=== PATIENT | male | born 1995 ===

== ENCOUNTER 2020-05-04 14:27 | Inpatient (IN) | payer BC, MEDICARE, MEDICAID ==
[2020-05-04 17:08] VITALS: BMI 17.2
[2020-05-04] MEDS ORDERED: Ondansetron PF 4 MG/2 ML Vial IVP PRN (17:28)
[2020-05-04] MEDS ORDERED: Acetaminophen 325 MG TAB PO PRN (17:28)
[2020-05-04] MEDS ORDERED: Morphine 4 MG/ML VIAL SLOW IVP PRN (17:30)
[2020-05-04] MEDS ORDERED: Morphine 4 MG/ML VIAL ONE (17:34)
[2020-05-04] MEDS ORDERED: Albuterol Sulfate 1.25 MG/3 ML NEB NEB PRN (18:02)
[2020-05-04] MEDS ORDERED: HYDROcodone/Acetaminophen 7.5/325 mg Tablet PO PRN (18:19)
[2020-05-04 18:28] LABS: Anion Gap 12 mmol/L (10-20); BUN (Urea Nitrogen) 7 mg/dL (8.9-20.6); Calc. Creatinine Clearance 145 mL/min (70-130); Calcium 8.6 mg/dL (7.8-10.44); Carbon Dioxide 23 mmol/L (22-29); Chloride 107 mmol/L (98-107); Estimated GFR-MDRD Greater than 90; Glucose 89 mg/dL (70-105); Potassium 3.8 mmol/L (3.5-5.1); Sodium 138 mmol/L (136-145)
[2020-05-04] MEDS ORDERED: Clindamycin/D5W 600 MG in Premix Bag 1 BAG IVPB SCH (18:30)
[2020-05-04 18:34] LABS: Anisocytosis SLIGHT = 6-15 cells (100X) (0-5/hpf); Band 19 % (5-11); Eosinophils 2 % (0-10); Hemoglobin C Crystals SLIGHT (None Seen); Hypochromia MODERATE=16-30 cells (100X) (0-5/hpf); Lymphocytes 18 % (21-51); MDiff Complete? YES; Mean Corpuscular HGB CONC 34.1 g/dL (32.0-36.0); Mean Corpuscular Volume 73.2 fL (78.0-98.0); Mean Platelet Volume 11.3 fL (7.4-10.4); Metamyelocyte 4 % (0-0); Neutrophil 55 % (42-75); Nucleated RBC 1 % (0); Platelet Count 365 thou/uL (130-400); Poikilocytosis MODERATE=16-30 cells (100X) (0-5/hpf); RBC Distribution Width 21.8 % (11.5-14.5); Reactive Lymphocytes 2 % (0-10); Red Blood Cell (RBC) Count 2.38 mill/uL (4.70-6.10); Sickle Cells SLIGHT = 1-5 cells (100X) (None Seen); White Blood Cell (WBC) Count 14.3 thou/uL (4.8-10.8)
--- NOTE | 2020-05-04 19:10 | HP ---
CHIEF COMPLAINT: Dental infection. HISTORY OF PRESENT ILLNESS: This is a 24-year-old male with history of sickle cell disease, asthma, who presented to [facility] with a complaint of swelling in the right side of his face. He reports that it started 2 days ago, with pain, progressed to significant swelling yesterday that has progressively gotten worse. He denies any fevers or chills. He denies any precipitating or relieving factors. He reports the pain is a 9/10 in intensity right now, radiates to the right side of his neck. He reports a similar history on the left side associated with a dental infection, however, not as severe. The patient does have a history of sickle cell disease, reports multiple transfusions in the past, however none recently. He states that he has been doing well, it has been over a year since his last hospitalization, and he does not take any of his regular medications. As for the asthma, he denies any problems and rarely uses an inhaler. He has not seen his Primary Care Provider in years , or senior operations analyst. In [facility], patient underwent a CT scan which was significant for: cellulitis involving the right face, primarily over the mandible region, and a small fluid collection along the buccal surface of the mandible which may represent a small developing abscess, probably related to caries from the mandibular molars. He received clindamycin 600 mg IV. The patient was transferred to this facility for an oral maxillofacial surgeon. The patient also received normal saline 500 mL, Toradol 30 mg x2, Zofran 4 mg oral, Arabi 1 tablet. The patient also found to have a hemoglobin of 5.8, and he received 1 unit of packed red blood cells. PAST MEDICAL HISTORY: 1. Sickle cell disease - no medications and no regular monitoring. 2. Asthma. PAST SURGICAL HISTORY: A port on the left side of his chest. MEDICATIONS: The patient has a list of medications that he should be on, however, he reports not taking any of them. This list is; 1. Tylenol No. 3 one to two tablets every 4 hours as needed. 2. Albuterol 2 puffs every 4 hours as needed. 3. Aspirin 81 mg every other day. 4. Deferasirox 1500 mg daily. 5. Anne Marie 180 mg daily. 6. Folic acid 1 mg daily. 7. Gabapentin 300 mg daily. 8. Arabi 5/325 one to two tablets every 4 hours as needed. 9. Ibuprofen 800 mg three times daily as needed. 10. Xopenex 1.25 mg nebulizer every 4 hours as needed. 11. Singulair 10 mg daily. 12. Multivitamin daily. ALLERGIES: HE DENIES. FAMILY HISTORY: Negative in his immediate family. SOCIAL HISTORY: He denies alcohol. Reports cigarettes about 2 times per week and states his mom, Mo, is his surrogate decision maker. REVIEW OF SYSTEMS: Negative for fevers, nausea, vomiting, difficulty breathing, difficulty swallowing. He also denies any blood in his urine or stool or change in bowel or bladder habits. Positive for left leg pain that is chronic and worse over the past 4 days. All remaining review of systems are reviewed and negative. PHYSICAL EXAMINATION: VITAL SIGNS: Blood pressure 103/57, temperature 98.4, pulse 78, respirations 16 , and sats 97% on room air. GENERAL: Awake, alert, appears uncomfortable secondary to pain, grasping on the right side of his jaw. He is not in extreme distress. HEENT: His pupils are equal and round. Oral mucosa is pink and moist. He does have significant edema of the right cheek extending down into the right side of his neck with tenderness to palpation throughout. No overlying skin changes. NECK: Supple, nontender. LYMPHATICS: No palpable anterior cervical lymphadenopathy, however. Given the significant tenderness to palpation, the exam was limited. LUNGS: Clear to auscultation bilateral. No audible wheezing, rhonchi, or rales. HEART: Normal S1, S2. Regular rate and rhythm. No significant murmurs. ABDOMEN: Soft, present bowel sounds. Nontender, nondistended. EXTREMITIES: No edema of the joints. No tenderness to palpation. No erythema of the joints. SKIN: No visible rashes. NEUROLOGIC: No focal deficits. PSYCHIATRIC: Appears euthymic. VASCULAR: 2+ dorsalis pedis pulses. LABORATORY DATA: Reviewed from [place]. Renal panel; 139, 3.9, 104, 24, 70.6, 97. Type and screen O positive, antibody negative. CT scan of the face with contrast, cellulitis involving the right face, primarily over the mandible region. Small fluid dense collection along the buccal surface of the mandible, may represent a small developing abscess, probably related to caries from the mandibular molars. CBC; 14.9, 5.8, 16.9 with platelets of 392. Reticulocyte count 5.2, LDH 339. IMPRESSION: 1. Right facial cellulitis with concern of abscess in the mandibular area. 2. Sickle cell disease with early symptoms of crisis with acute on chronic left leg pain. 3. Chronic anemia now status post 1 unit of packed red blood cells at [facility]. 3. Asthma, controlled. PLAN: 1. Consultation with OMFS on-call. I spoke with Dr. Kelly who will plan to see the patient tomorrow. We reviewed orders for tonight, which are to continue the clindamycin IV, n.p.o. starting at 8 in the morning, manage pain and callback with any changes. The patient last received the clindamycin about 8 hours ago. We will schedule the next dose now. 2. Manage pain with morphine, avoiding any Toradol for now as I am concerned that it may increase his risk of bleeding in the OR tomorrow and patient is already anemic. Add option for norco as well. 3. We will obtain a type and screen, repeat the hemoglobin with a goal of transfusion to a level of at least above 7. We will check that again in the morning. 4. As needed albuterol with any breathing difficulty. 5. Monitoring for any airway compromise associated with the facial/mandibular edema. There is none currently. 6. We will order a liquid diet for now. 7. DVT prophylaxis with SCDs. 8. GI prophylaxis is not indicated. 9. Code status is full. Surrogate decision maker is the patient's mom. 10. Reviewed the plan of care with the patient. No questions or further needs at the end of evaluation. 11. The patient is at high risk given age, comorbidities, and current presentation. Job ID: [id number] [facility]
[2020-05-04] MEDS: HYDROcodone/Acetaminophen 7.5/325 mg Tablet PO PRN ×2 (19:21→23:14)
[2020-05-04] MEDS: Sodium Chloride 0.9% 1,000 ML IV SCH (19:21)
[2020-05-04] MEDS: Morphine 4 MG/ML VIAL SLOW IVP PRN (21:56)
[2020-05-05] MEDS: Clindamycin/D5W 600 MG in Premix Bag 1 BAG IVPB SCH ×3 (01:44→17:33)
[2020-05-05] MEDS: Morphine 4 MG/ML VIAL SLOW IVP PRN ×6 (02:21→22:03)
[2020-05-05] MEDS: HYDROcodone/Acetaminophen 7.5/325 mg Tablet PO PRN ×5 (03:41→23:27)
[2020-05-05 05:53] LABS: Anion Gap 10 mmol/L (10-20); BUN (Urea Nitrogen) 5 mg/dL (8.9-20.6); Calc. Creatinine Clearance 164 mL/min (70-130); Calcium 8.9 mg/dL (7.8-10.44); Carbon Dioxide 26 mmol/L (22-29); Chloride 106 mmol/L (98-107); Estimated GFR-MDRD Greater than 90; Glucose 89 mg/dL (70-105); Potassium 3.5 mmol/L (3.5-5.1); Sodium 138 mmol/L (136-145)
[2020-05-05 06:21] LABS: Hemoglobin 6.7 g/dL (14.0-18.0); Mean Corpuscular HGB CONC 33.2 g/dL (32.0-36.0); Mean Corpuscular Hemoglobin 25.3 pg (27.0-31.0); Mean Corpuscular Volume 76.1 fL (78.0-98.0); Mean Platelet Volume 11.1 fL (7.4-10.4); Platelet Count 373 thou/uL (130-400); RBC Distribution Width 21.4 % (11.5-14.5); Red Blood Cell (RBC) Count 2.66 mill/uL (4.70-6.10); White Blood Cell (WBC) Count 39.9 thou/uL (4.8-10.8)
[2020-05-05 06:22] LABS: Eosinophils 1 % (0-10); Hypochromia SLIGHT = 6-15 cells (100X) (0-5/hpf); Lymphocytes 11 % (21-51); MDiff Complete? YES; Monocytes 7 % (0-10); Neutrophil 81 % (42-75); Platelet Morphology Comment Appears Adequate; Target Cells SLIGHT = 2-5 cells (100X) (0-1/hpf)
--- NOTE | 2020-05-05 08:47 | PDOC.HOSPP ---
- Subjective Encounter Date: 05/05/20 (f/u mandibular abscess) Encounter Time: 08:45 Subjective: Pt admitted yesterday for mandibular abscess and cellulitis. Reports difficulty sleeping o/n secondary to pain. he reports draining around one of his teeth since last night - feels more comfortable today. - Objective Vital Signs & Weight: Vital Signs (12 hours) Temp Pulse Pulse Resp BP BP Pulse Ox 05/05/20 07:19 97.9 F 64 16 103/58 L 94 L 05/05/20 04:39 98.7 F 63 16 104/58 L 95 05/05/20 00:43 98.6 F 55 L 16 96/54 L 95 05/04/20 22:06 99.0 F 68 16 111/45 L 96 05/04/20 22:04 99.2 F 67 16 110/64 94 L 05/04/20 20:55 94 L Weight Weight 138 lb I&O: 05/04/20 05/05/20 05/06/20 06:59 06:59 06:59 Intake Total 350 Output Total 1000 Balance -650 Result Diagrams: 05/05/20 04:52 05/05/20 04:52 Hospitalist ROS - Medication Medications: Active Medications Generic Name Dose Route Start Last Admin Trade Name Freq PRN Reason Stop Dose Admin Hydrocodone Bitart/Acetaminophen 2 tab 05/04/20 18:19 05/05/20 08:00 [place] 7.5/325 PO 2 tab Q4H PRN Administration Moderate Pain (4-6) Clindamycin Phosphate/Dextrose 50 mls @ 100 mls/hr 05/05/20 02:00 05/05/20 01 :44 600 mg/ Device IVPB 50 mls 0200,1000,1800 MOY Administration Sodium Chloride 1,000 mls @ 75 mls/hr 05/05/20 08:00 05/04/20 19:21 Normal Saline 0.9% IV 1,000 mls .[id number] MOY Administration Morphine Sulfate 4 mg 05/04/20 18:03 05/05/20 06:01 Morphine SLOW IVP 4 mg Q2H PRN Administration Moderate to Severe Pain (6-10) - Exam General Appearance: NAD Heart: RRR, no murmur Respiratory: CTAB, no wheezes, no rales, no ronchi Gastrointestinal: soft, non-tender, non-distended, normal bowel sounds Extremities: no cyanosis, no clubbing, no edema Musculoskeletal: normal tone Psychiatric: normal affect Psychiatric - other findings: appears more comfortable today Hosp A/P (1) Mandibular abscess Code(s): M27.2 - INFLAMMATORY CONDITIONS OF JAWS Status: Acute (2) Facial cellulitis Code(s): L03.211 - CELLULITIS OF FACE Status: Acute (3) Sickle cell anemia Code(s): D57.1 - SICKLE-CELL DISEASE WITHOUT CRISIS Status: Chronic Qualifiers: Sickle-cell associated disorders: with unspecified crisis Qualified Code(s) : D57.00 - Hb-SS disease with crisis, unspecified; D57.0 - Hb-SS disease with crisis (4) Asthma Code(s): J45.909 - UNSPECIFIED ASTHMA, UNCOMPLICATED Status: Chronic Qualifiers: Asthma severity: mild Asthma persistence: intermittent Asthma complication type: uncomplicated Qualified Code(s): J45.20 - Mild intermittent asthma, uncomplicated - Plan Mandibular abscess/facial cellulitis - Oral Surgeon/Dr. Kelly to evaluate today with anticipated surgery later this afternoon - Clindamycin 600 mg IV Q8h - continue pain management - npo now for surgery later Sickle cell anemia now s/p 2 units PRBC - remains less than 7 - will order 1 additional unit prbc Asthma - controlled, prn nebs dvt prophy - ambulatory gi prophy - not indicated code status full reviewed plan of care with patient, no questions or further needs at end of eval.
[2020-05-05 16:25] LABS: Hemoglobin 7.6 g/dL (14.0-18.0); Mean Corpuscular HGB CONC 32.8 g/dL (32.0-36.0); Mean Corpuscular Hemoglobin 25.8 pg (27.0-31.0); Mean Corpuscular Volume 78.7 fL (78.0-98.0); Mean Platelet Volume 10.9 fL (7.4-10.4); Platelet Count 387 thou/uL (130-400); RBC Distribution Width 21.4 % (11.5-14.5); Red Blood Cell (RBC) Count 2.95 mill/uL (4.70-6.10)
--- NOTE | 2020-05-05 16:32 | RAD ---
EXAM: Chest 2 views: HISTORY: Elevated white blood cell count. Sickle cell disease. Chest pain COMPARISON: None FINDINGS: There is a normal-sized cardiomediastinal silhouette. There is a left subclavian Mediport with its t ip in the superior vena cava. There is no evidence of consolidation, mass, or pleural effusion. The bones are unremarkable. IMPRESSION: No evidence of acute cardiopulmonary disease
[2020-05-05 16:48] LABS: #Eosinphils 0.4 thou/uL (0.0-0.7); #Lymphocytes 3.1 thou/uL (1.20-3.40); #Monocytes 1.3 thou/uL (0.11-0.59); #Neutrophils 9.6 thou/uL (1.40-6.50); %Basophils 0.1 % (0.0-1.0); %Eosinophils 2.8 % (0.0-10.0); %Lymphocytes 21.4 % (21.0-51.0); %Monocytes 8.9 % (0.0-10.0); %Neutrophils 66.7 % (42.0-75.0); Anisocytosis MODERATE=16-30 cells (100X) (0-5/hpf); Eosinophils 3 % (0-10); Howell Jolly Bodies SLIGHT = 1-2 cells (100X) (None Seen); Hypochromia SLIGHT = 6-15 cells (100X) (0-5/hpf); Lymphocytes 20 % (21-51); MDiff Complete? YES; Monocytes 1 % (0-10); Neutrophil 75 % (42-75); Ovalocytes SLIGHT = 2-5 cells (100X) (0-1/hpf); Platelet Morphology Comment Appears Adequate; Polychromasia MODERATE = 3-4 cells (100X) (0-2/hpf); Sickle Cells SLIGHT = 1-5 cells (100X) (None Seen); Target Cells SLIGHT = 2-5 cells (100X) (0-1/hpf); Tear Drops SLIGHT = 2-5 cells (100X) (0-1/hpf); White Blood Cell (WBC) Count 14.4 thou/uL (4.8-10.8)
--- NOTE | 2020-05-05 16:57 | PDOC.EVN ---
Event Note - Event Note Event Note: Pt further evaluated for elevated WBC count this morning - CXR obtained and negative for acute process. Pt is breathing well and denies any breathing complaints or chest pain. Repeat WBC now is much lower. No limitation to proceeding with OR this afternoon with Oral Surgeon.
[2020-05-05] MEDS: Sodium Chloride 0.9% 1,000 ML IV SCH (23:27)
[2020-05-06] MEDS: Clindamycin/D5W 600 MG in Premix Bag 1 BAG IVPB SCH ×3 (01:21→18:10)
[2020-05-06] MEDS: Morphine 4 MG/ML VIAL SLOW IVP PRN ×6 (01:22→23:02)
[2020-05-06] MEDS: HYDROcodone/Acetaminophen 7.5/325 mg Tablet PO PRN ×3 (03:05→21:06)
[2020-05-06 05:52] LABS: Anion Gap 11 mmol/L (10-20); BUN (Urea Nitrogen) 7 mg/dL (8.9-20.6); Calc. Creatinine Clearance 164 mL/min (70-130); Carbon Dioxide 26 mmol/L (22-29); Chloride 105 mmol/L (98-107); Estimated GFR-MDRD Greater than 90; Glucose 97 mg/dL (70-105); Potassium 3.4 mmol/L (3.5-5.1); Sodium 139 mmol/L (136-145)
[2020-05-06 06:05] LABS: Band 2 % (5-11); Eosinophils 3 % (0-10); Hemoglobin 7.2 g/dL (14.0-18.0); Lymphocytes 36 % (21-51); MDiff Complete? YES; Mean Corpuscular HGB CONC 33.9 g/dL (32.0-36.0); Mean Corpuscular Hemoglobin 26.8 pg (27.0-31.0); Mean Corpuscular Volume 79.1 fL (78.0-98.0); Mean Platelet Volume 9.8 fL (7.4-10.4); Monocytes 8 % (0-10); Neutrophil 50 % (42-75); Platelet Count 354 thou/uL (130-400); Platelet Morphology Comment Appears Adequate; RBC Distribution Width 20.4 % (11.5-14.5); Red Blood Cell (RBC) Count 2.69 mill/uL (4.70-6.10); White Blood Cell (WBC) Count 13.4 thou/uL (4.8-10.8)
[2020-05-06] MEDS: Sodium Chloride 0.9% 1,000 ML IV SCH (09:52)
--- NOTE | 2020-05-06 11:47 | PDOC.HOSPP ---
- Subjective Encounter Date: 05/06/20 (f/u mandibular abscess) Encounter Time: 11:44 Subjective: 24 y/o male with sickle cell disease admitted for mandibular abscess, right facial cellulitis and anemia. SInce admission he has received IV clindamycin, 3 units prbc, and pain medications. Oral surgery was delayed until today due to OR availability. Pt c/o pain - states it is responding to pain meds. He states the swelling is better on his face and worse with his gums. He denies any new sx, difficulty breathing, or any other concerns. - Objective Vital Signs & Weight: Vital Signs (12 hours) Temp Pulse Resp BP Pulse Ox 05/06/20 11:00 98.2 F 46 L 18 109/63 99 05/06/20 07:37 98.0 F 62 18 96/50 L 97 05/06/20 03:08 97.7 F 47 L 16 95/57 L 98 Weight Admit Weight 138 lb Weight 138 lb I&O: 05/05/20 05/06/20 05/07/20 06:59 06:59 06:59 Intake Total 350 350 Output Total 1000 400 Balance -650 -50 Result Diagrams: 05/06/20 04:54 05/06/20 04:54 Hospitalist ROS - Medication Medications: Active Medications Generic Name Dose Route Start Last Admin Trade Name Freq PRN Reason Stop Dose Admin Hydrocodone Bitart/Acetaminophen 2 tab 05/04/20 18:19 05/06/20 07:32 [place] 7.5/325 PO 2 tab Q4H PRN Administration Moderate Pain (4-6) Clindamycin Phosphate/Dextrose 50 mls @ 100 mls/hr 05/05/20 02:00 05/06/20 09 :51 600 mg/ Device IVPB 50 mls 0200,1000,1800 MOY Administration Sodium Chloride 1,000 mls @ 75 mls/hr 05/05/20 08:00 05/06/20 09:52 Normal Saline 0.9% IV 1,000 mls .[id number] MOY Administration Morphine Sulfate 4 mg 05/04/20 18:03 05/06/20 05:10 Morphine SLOW IVP 4 mg Q2H PRN Administration Moderate to Severe Pain (6-10) Ondansetron HCl 4 mg 05/04/20 17:28 05/06/20 05:11 Zofran IVP 4 mg Q6H PRN Administration Nausea/Vomiting - Exam General Appearance: NAD ENT - other findings: less edema of right cheek and neck Heart: RRR, no murmur Respiratory: CTAB, no wheezes, no rales, no ronchi Gastrointestinal: soft, non-tender, non-distended, normal bowel sounds Extremities: no cyanosis, no clubbing, no edema Psychiatric: normal affect Hosp A/P (1) Mandibular abscess Code(s): M27.2 - INFLAMMATORY CONDITIONS OF JAWS Status: Acute (2) Facial cellulitis Code(s): L03.211 - CELLULITIS OF FACE Status: Acute (3) Sickle cell anemia Code(s): D57.1 - SICKLE-CELL DISEASE WITHOUT CRISIS Status: Chronic Qualifiers: Sickle-cell associated disorders: with unspecified crisis Qualified Code(s) : D57.00 - Hb-SS disease with crisis, unspecified; D57.0 - Hb-SS disease with crisis (4) Asthma Code(s): J45.909 - UNSPECIFIED ASTHMA, UNCOMPLICATED Status: Chronic Qualifiers: Asthma severity: mild Asthma persistence: intermittent Asthma complication type: uncomplicated Qualified Code(s): J45.20 - Mild intermittent asthma, uncomplicated (5) Underweight Code(s): R63.6 - UNDERWEIGHT Status: Chronic - Plan Mandibular abscess/facial cellulitis - Oral Surgeon/Dr. Kelly to OR today - the OR was unable to accomodate pt yesterday - Clindamycin 600 mg IV Q8h - continue pain management - npo now for surgery, d/c IVF after surgery. Sickle cell anemia now s/p 3 units total of prbc and stable. No indication for further blood. If the patient is not symptomatic, then do not need to acheive any specific minimum for hemoglobin. Consult Dr. Borjas with any sickle cell specific questions. Asthma - controlled, prn nebs dvt prophy - ambulatory gi prophy - not indicated code status full reviewed plan of care with patient, no questions or further needs at end of eval. Antibiotics duration to be determined after surgery, as well as anticipated discharge.
[2020-05-06] MEDS ORDERED: Dexamethasone 20 MG/5 ML VIAL ONE (14:38)
[2020-05-06] MEDS ORDERED: Ondansetron PF 4 MG/2 ML Vial ONE (14:38)
[2020-05-06] MEDS ORDERED: PROPOFOL 200 MG/20 ML VIAL ONE (14:38)
[2020-05-06] MEDS ORDERED: Rocuronium Bromide 10 MG/ML (10ML VIAL) ONE (14:38)
[2020-05-06] MEDS ORDERED: Lidocaine 1% PF 5 ML VIAL ONE (14:38)
[2020-05-06] MEDS ORDERED: Clindamycin/D5W 600 mg/50 ml Premix Bag ONE (17:43)
[2020-05-06] MEDS ORDERED: Midazolam HCl 2 mg/2 ml Vial ONE (17:43)
[2020-05-06] MEDS ORDERED: Lidocaine 1% w/Epinephrine 1:100K 20 ML VIAL ONE (17:46)
[2020-05-06] MEDS ORDERED: Chlorhexidine Gluconate 15 ML UDCUP SSP ONE (17:46)
[2020-05-06] MEDS ORDERED: Fentanyl 100 MCG/2 ML VIAL ONE ×3 (17:52→20:25)
[2020-05-06] MEDS ORDERED: Famotidine/PF 20 mg/2ml Vial ONE (17:52)
[2020-05-06] MEDS ORDERED: AFRIN NASAL MIST 15 ML BOT ONE (18:20)
[2020-05-06] MEDS ORDERED: Ophthalmic Irrigation Solution 15 ML ONE (18:20)
[2020-05-06] MEDS ORDERED: SUGAMMADEX SODIUM 200 MG/2 ML VIAL ONE (18:56)
[2020-05-06] MEDS ORDERED: Promethazine HCl 25 MG/ML VIAL SLOW IVP PRN (19:25)
[2020-05-06] MEDS ORDERED: HYDROmorphone 2 MG/ML VIAL SLOW IVP PRN (19:25)
[2020-05-06] MEDS ORDERED: Promethazine HCl 25 MG/ML VIAL IM PRN (19:25)
[2020-05-06] MEDS ORDERED: Meperidine HCl/PF 25 MG/ML VIAL SLOW IVP PRN (19:25)
[2020-05-06] MEDS ORDERED: HYDROmorphone 2 MG/ML VIAL ONE (19:26)
[2020-05-06] MEDS: Acetaminophen/Codeine 30-300mg Tablet PO PRN (23:03)
[2020-05-07] MEDS: HYDROcodone/Acetaminophen 7.5/325 mg Tablet PO PRN ×4 (01:28→12:56)
[2020-05-07] MEDS: Morphine 4 MG/ML VIAL SLOW IVP PRN ×2 (01:28→03:18)
[2020-05-07] MEDS: Clindamycin/D5W 600 MG in Premix Bag 1 BAG IVPB SCH ×2 (01:29→10:07)
[2020-05-07] MEDS: Acetaminophen/Codeine 30-300mg Tablet PO PRN (03:18)
[2020-05-07 05:42] LABS: Anion Gap 13 mmol/L (10-20); BUN (Urea Nitrogen) 5 mg/dL (8.9-20.6); Calc. Creatinine Clearance 161 mL/min (70-130); Calcium 9.2 mg/dL (7.8-10.44); Carbon Dioxide 23 mmol/L (22-29); Chloride 105 mmol/L (98-107); Estimated GFR-MDRD Greater than 90; Glucose 105 mg/dL (70-105); Potassium 3.9 mmol/L (3.5-5.1); Sodium 137 mmol/L (136-145)
[2020-05-07 05:44] LABS: Band 5 % (5-11); Hypochromia SLIGHT = 6-15 cells (100X) (0-5/hpf); Lymphocytes 5 % (21-51); MDiff Complete? YES; Mean Corpuscular HGB CONC 31.9 g/dL (32.0-36.0); Mean Corpuscular Hemoglobin 25.4 pg (27.0-31.0); Mean Corpuscular Volume 79.6 fL (78.0-98.0); Mean Platelet Volume 9.5 fL (7.4-10.4); Monocytes 5 % (0-10); Neutrophil 85 % (42-75); Platelet Count 405 thou/uL (130-400); Platelet Morphology Comment Appears Increased; Polychromasia SLIGHT = 2-3 cells (100X) (0-2/hpf); RBC Distribution Width 20.1 % (11.5-14.5); Red Blood Cell (RBC) Count 3.13 mill/uL (4.70-6.10); Sickle Cells SLIGHT = 1-5 cells (100X) (None Seen); Target Cells MODERATE= 6-15 cells (100X) (0-1/hpf); White Blood Cell (WBC) Count 10.9 thou/uL (4.8-10.8)
--- NOTE | 2020-05-07 08:11 | PDOC.HOSPP ---
- Subjective Encounter Date: 05/07/20 (f/u dental abscess) Encounter Time: 08:09 Subjective: Pt is s/p I&D yesterday and he reports feeling much better. Pain is controlled, he denies n/v or any new sx. - Objective Vital Signs & Weight: Vital Signs (12 hours) Temp Pulse Resp BP BP Pulse Ox 05/07/20 07:08 98.2 F 64 14 98/58 L 99 05/07/20 03:14 98.1 F 60 16 98/59 L 99 05/06/20 20:50 97.9 F 80 20 146/84 H 96 Weight Admit Weight 138 lb Weight 138 lb I&O: 05/06/20 05/07/20 05/08/20 06:59 06:59 06:59 Intake Total 350 1895 Output Total 400 3250 Balance -50 -1355 Result Diagrams: 05/07/20 05:11 05/07/20 05:11 Hospitalist ROS - Medication Medications: Active Medications Generic Name Dose Route Start Last Admin Trade Name Freq PRN Reason Stop Dose Admin Acetaminophen/Codeine Phosphate 1 tab 05/06/20 21:23 05/07/20 03:18 Tylenol #3 PO 1 tab Q4H PRN Administration Pain Hydrocodone Bitart/Acetaminophen 2 tab 05/04/20 18:19 05/07/20 05:19 [place] 7.5/325 PO 2 tab Q4H PRN Administration Moderate Pain (4-6) Clindamycin Phosphate/Dextrose 50 mls @ 100 mls/hr 05/05/20 02:00 05/07/20 01 :29 600 mg/ Device IVPB 50 mls 0200,1000,1800 MOY Administration Morphine Sulfate 4 mg 05/04/20 18:03 05/07/20 03:18 Morphine SLOW IVP 4 mg Q2H PRN Administration Moderate to Severe Pain (6-10) Ondansetron HCl 4 mg 05/04/20 17:28 05/06/20 05:11 Zofran IVP 4 mg Q6H PRN Administration Nausea/Vomiting - Exam General Appearance: NAD General - other findings: sitting up, smiling this morning Heart: RRR, no murmur Respiratory: CTAB, no wheezes, no rales, no ronchi Gastrointestinal: soft, non-tender, non-distended, normal bowel sounds Extremities: no cyanosis, no clubbing, no edema Psychiatric: normal affect Hosp A/P (1) Mandibular abscess Code(s): M27.2 - INFLAMMATORY CONDITIONS OF JAWS Status: Resolved (2) Facial cellulitis Code(s): L03.211 - CELLULITIS OF FACE Status: Acute (3) Sickle cell anemia Code(s): D57.1 - SICKLE-CELL DISEASE WITHOUT CRISIS Status: Chronic Qualifiers: Sickle-cell associated disorders: with unspecified crisis Qualified Code(s) : D57.00 - Hb-SS disease with crisis, unspecified; D57.0 - Hb-SS disease with crisis (4) Asthma Code(s): J45.909 - UNSPECIFIED ASTHMA, UNCOMPLICATED Status: Chronic Qualifiers: Asthma severity: mild Asthma persistence: intermittent Asthma complication type: uncomplicated Qualified Code(s): J45.20 - Mild intermittent asthma, uncomplicated (5) Underweight Code(s): R63.6 - UNDERWEIGHT Status: Chronic - Plan Mandibular abscess/facial cellulitis now s/p I&D and much improved. - Drain to be removed today at lunch - anticipate d/c to home and f/u with Dr. Kelly in 1 week. Sickle cell anemia now s/p 3 units total of prbc and stable. No indication for further blood. If the patient is not symptomatic, then do not need to acheive any specific minimum for hemoglobin. Consult Dr. Borjas with any sickle cell specific questions. - Recommend new patient appt with Dr. Borjas as an outpatient. Asthma - controlled, prn nebs dvt prophy - ambulatory gi prophy - not indicated code status full reviewed plan of care with patient, no questions or further needs at end of eval. Anticipate d/c today
[2020-05-07] MEDS ORDERED: Chlorhexidine Gluconate 15 ML UDCUP SSP SCH (09:00)
[2020-05-07 11:25] VITALS: BP 96/61; TEMP 98.1
--- NOTE | 2020-05-07 18:02 | DIS ---
DATE OF ADMISSION: 05/04/2020 DATE OF DISCHARGE: 05/07/2020 CONSULTANTS: Dr. Hans Kelly of Oral Surgery. PROCEDURES PERFORMED: On May 06, I and D of mandibular abscess and tooth extraction. Total transfusion of 3 units packed red blood cells. DISCHARGE MEDICATIONS: Medications are reconciled at discharge. New medications; 1. Tylenol No. 3 one tablet every 4 hours as needed for moderate pain, prescribing 20 tablets. 2. Chlorhexidine rinse 15 mL swish and spit twice a day for 7 days. 3. Clindamycin 300 mg 4 times daily for 8 days. Medications to resume (note the patient reported he was prescribed these, but not taking. Recommend that he resume); 1. ProAir two puffs every 4 hours as needed for wheezing. 2. Aspirin 81 mg every other day. 3. Anne Marie 180 mg daily. 4. Advair 100/50 b.i.d. 5. Folic acid 1 mg daily. 6. Xopenex one nebulizer treatment every 4 hours as needed. 7. Singulair 10 mg daily. 8. Multivitamin daily. Medications discontinued: The patient was not taking these, so I had listed them as discontinued; 1. Exjade - discuss with Enamel Buffer 2. Gabapentin. 3. Brea. 4. Ibuprofen. FINAL DIAGNOSES: 1. Mandibular abscess and facial cellulitis, now status post I and D with overall improvement. 2. Sickle cell anemia, status post 3 units of packed red blood cells. SECONDARY DIAGNOSES: 1. Asthma. 2. Underweight. HISTORY OF PRESENT ILLNESS: Mr. Landaverde is a 24-year-old male with known sickle cell disease, who presented to an outside hospital with a complaint of facial pain and swelling. He underwent CT scan, which showed a fluid collection in the mandibular area and he was started on antibiotics and sent here. He was also found to have a hemoglobin of 5.8, and transfused 1 unit in the outside hospital. HOSPITAL COURSE: 1. The patient was evaluated here, and continued on clindamycin with consultation from oral maxillofacial surgeon. He did undergo an I and D yesterday, with removal of one tooth. The swelling has significantly improved, and pain has been managed. The patient has been cleared for discharge to home and will need followup in [address] Kelly. He will continue antibiotics, pain medicine as needed, as well as an oral antibacterial rinse. 2. Sickle cell anemia. The patient reports his usual hemoglobin is around 8. He has been away from care for a few years, and has not had this checked recently. He was transfused a total of 3 units and has maintained a level above 7. He denies any symptoms associated with this degree of anemia. The patient did note some increasing leg pain with the infection, this has been managed as well. Because of a white blood cell count of 39, on hospital day 2, he was evaluated with a chest x -ray for acute chest process, which was negative. The patient has been breathing well, and show no signs of complication from either transfusion or the sickle cell disease. 3. Asthma. The patient has no signs of exacerbation. The patient is overall doing well and does meet criteria for discharge to home. Of note, he did have a drain in place from the surgery yesterday which was removed. I encourage the patient to follow up with the Oral Surgeon. In addition, he is encouraged to obtain both a Enamel Buffer and Primary Care Provider to assist with managing his health. PHYSICAL EXAMINATION: Please see the note on the chart. MORGAN FINDINGS AND TEST RESULTS: CBC today 10.9, 8.0, 24.9, 405. Of note, white blood cell count 39.9 on May 05, which was checked later that day and 14.4. Chemistry; 137, 3.9, 105, 23, 5, 0.63, 105. 2 units transfused here, packed red blood cells one at an outside hospital. Chest x-ray on May 05, no evidence of an acute cardiopulmonary disease. DIET: Regular. DISCHARGE DISPOSITION: Home. FOLLOWUP: 1. With Dr. Kelly in 1 week for re-evaluation after surgery. 2. Recommend that the patient establish care [facility] for management and monitoring of the sickle cell disease. 3. Follow up with the primary care provider is recommended within a week to review this hospitalization and address any other health needs to include asthma. Reviewed with patient this hospitalization, the importance of followup, and the seek care precautions. He demonstrates understanding. TIME SPENT: Total time coordinating discharge is 30 minutes. Job ID: [id number] [facility]
--- NOTE | 2020-05-08 12:34 | OP ---
DATE OF PROCEDURE: 05/06/2020 PREOPERATIVE DIAGNOSIS: 1.Right buccal space infection. 2. Right vestibular space infection 3. Non-restorable tooth #30 POSTOPERATIVE DIAGNOSES: 1.Right buccal space infection. 2. Right vestibular space infection 3. Non-restorable tooth #30 PROCEDURES PERFORMED: 1. Extraction of tooth #30. 2. Incision and drainage of right buccal and vestibular space infection. BATCH FREEZER: None. ANESTHESIA: General endotracheal anesthesia. SPECIMENS: None. FLUIDS: 800 mL of isotonic crystalloid. FINDINGS: Right buccal and vestibular space infection, large carious lesion on tooth #30. Purulence appreciated along right buccal and vestibular space -total of 3-4 cc. URINE OUTPUT: No [place]. DISPOSITION: PACU. INDICATIONS FOR PROCEDURE: Patient was evaluated by Oral and Maxillofacial surgeon, Dr. Hans Kelly. After clinical and radiographic evaluation, he was noted to have non-restorable tooth #30 with associated right buccal and vestibular space infections. On the day of surgery, the patient was met in the preoperative holding area. Site, identification, and procedure were confirmed. The patient elected to continue with the recommended procedures, which included extraction #30 with incision and drainage of right buccal and vestibular space infections. DESCRIPTION OF PROCEDURE: The patient was transferred to operating room C, placed on the operating room table in supine position. The patient was deemed a good candidate to undergo general anesthesia. He was connected to the cardiopulmonary monitors and was induced in a state of general endotracheal anesthesia. He was intubated via the right naris. The tube was secured and properly positioned by the anesthesia team. Ocular lubricant was placed in the patient's eyes and the patient's eyes were taped shut to protect the eyes. Next, the patient was draped in a standard fashion. Bite block was placed. Throat pack was placed. The patient's mouth was prepped with Peridex oral rinse. I used a total of 7 mL of 2% lidocaine with 100,000 epinephrine in the right inferior alveolar nerve block and infiltration to the right buccal and vestibular space. Next using 15 blade, made a sulcular incision along tooth #30. Using forceps and elevators, tooth #30 was delivered without complication. Next, using 15 blade, made a 1 cm incision within the right buccal and vestibular space through mucosa down to underlying periosteum. Next using periosteal elevator, performed a subperiosteal dissection. Next using mosquito hemostats, blunt dissection into the loculated areas along the right buccal and vestibular spaces. 3--4 cc of purulence was appreciated. Next, copious saline irrigation for a total of 500 mL of sterile saline was irrigated in site. Next, using a quarter-inch Luis Miguel drain, placed into incision and drainage site and secured with 4-0 chromic gut sutures x2. Next, site #30 was curettaged and irrigated. Placed one 4-0 chromic gut suture. Next placed gauze packing at site #30. At this point, the procedure was deemed complete. The patient was extubated with spontaneous respirations intact. The patient was then transferred to PACU in stable condition. Job ID: [id number] [facility]
== END 2020-05-07 14:46 | disposition home or self-care (01) | DRG 137 ==
LOC: SURG A 14:27
PROVIDERS: ADMIT Internal Medicine; ATTEND Internal Medicine
PROC: 30233N1 Transfusion of Nonautologous Red Blood Cells into Peripheral Vein, Percutaneous Approach (ICD-10-PCS; principal; 2020-05-04)
PROC: 0C940ZZ Drainage of Buccal Mucosa, Open Approach (ICD-10-PCS; 2020-05-06)
PROC: 0CDXXZ0 Extraction of Lower Tooth, Single, External Approach (ICD-10-PCS; 2020-05-06)
DX: K12.2 Cellulitis and abscess of mouth (principal); D57.00 Hb-SS disease with crisis, unspecified; L03.211 Cellulitis of face; Z68.1 Body mass index [BMI] 19.9 or less, adult; M27.2 Inflammatory conditions of jaws; R63.6 Underweight; F17.210 Nicotine dependence, cigarettes, uncomplicated; J45.20 Mild intermittent asthma, uncomplicated; Z79.82 Long term (current) use of aspirin; Z79.51 Long term (current) use of inhaled steroids; Z79.899 Other long term (current) drug therapy
CPT/HCPCS: 36415; 36430; 71046; 80048; 85025; 86850; 86900; 86901; J1100; J1170; J1642; J2001; J2250; J2270; J2405; J2704; J3010; J3490; P9016; S0028